=== PATIENT | male | born 1975 | race Two or more races ===

== ENCOUNTER 2020-12-07 10:00 | Emergency (ER) | payer OTHER ==
[2020-12-07 10:36] LABS: BASOPHIL 1.4 % (0-2); EOSINOPHIL 1.9 % (0-5); HGB 15.9 g/dl (13.2-18.0); MCH 30.1 pg (25.0-31.0); MCHC 33.1 g/dL (32.0-36.0); MCV 90.7 fL (78.0-100.0); MONOCYTE 9.2 % (0-12); MPV 9.2 fL (6.0-9.5); NEUTROPHIL 52.7 % (41-80); NRBC 0; PLT 281 K/uL (150-400); RBC 5.29 M/uL (4.70-6.00); WBC 7.9 K/uL (4.0-10.5)
[2020-12-07 10:48] LABS: ALBUMIN 4.2 g/dL (3.4-5.0); BILIRUBIN - TOTAL 0.3 mg/dL (0.2-1.0); BUN/CREAT RATIO (CALC) 17.7 RATIO; CREATININE 0.96 mg/dL (0.67-1.17); GLOBULIN (CALCULATION) 3.8 g/dL; POTASSIUM 4.3 mmol/L (3.5-5.1)
[2020-12-07 11:51] LABS: CORONAVIRUS 2019 SARS-COV-2 NEGATIVE (NEGATIVE); INFLUENZA A NAA NEGATIVE (NEGATIVE)
[2020-12-07] MEDS ORDERED: OMEPRAZOLE40 MG PO (12:25)
[2020-12-07] MEDS ORDERED: CARAFATE1 GM PO (12:25)
[2020-12-07] MEDS ORDERED: MEDROL 4MG DOSEP4 MG PO (12:25)
[2020-12-07] MEDS ORDERED: DICYCLOMINE HCL20 MG PO (12:25)
[2020-12-07] MEDS ORDERED: CYCLOBENZAPRINE10 MG PO (12:27)
== END 2020-12-07 13:36 | disposition home or self-care (01) ==
LOC: FER 10:00
PROVIDERS: Internal Medicine
DX: K21.9 Gastro-esophageal reflux disease without esophagitis (principal); M94.0 Chondrocostal junction syndrome [Tietze]; R07.89 Other chest pain; R10.84 Generalized abdominal pain; I10 Essential (primary) hypertension; F17.290 Nicotine dependence, other tobacco product, uncomplicated; Z79.82 Long term (current) use of aspirin; Z91.041 Radiographic dye allergy status; Z20.822 Contact with and (suspected) exposure to COVID-19
CPT/HCPCS: 36415; 71250; 80053; 83690; 84145; 84484; 85025; 93005; J1170; J2405; U0002